=== PATIENT | female | born 1960 | race Caucasian/White ===

== ENCOUNTER 2017-01-25 09:05 | Day surgery (SDC) | payer BC ==
[~2017-01-25] VITALS: Ht 175.3 cm; Wt 74.4 kg
[2017-01-25] VITALS (10 sets, daily range): BP systolic 158–188; BP diastolic 78–95; PULSE 64–77; RESP 15–18; TEMP 97.2–98.4; O2SAT 94–98; Ht 175.3 cm; Wt 74.4 kg
[~2017-01-25 09:05] MED LIST: ACET-2321 PO; ALBU8.5H INH; ASCO-324 PO; IBUP200C62 PO; LIDOCAINE 1% (10mg/ml) 2ml SDV INJ ONE; LR 1,000 ML IV SCH; MULT-933 PO; VENL37.59 PO
--- OUTSIDE RECORDS SUMMARY | 2017-01-25 09:10 | XMS REPORT | Continuity of Care Document ---
Author Author Shweta Isidro Organization [facility] Address [address] [place] [address] Phone Care Team Providers Care Hydrodynamics Teacher Name Role Phone Jonathan, Merle COBB Unavailable Payers Payer name Insurance type Covered republican ID Authorization(s) Unknown Problems Condition Effective Dates (start - stop) Clinical Status Elevated blood pressure reading without diagnosis of hypertension - *Acute Bronchitis, Acute - *Acute Presbyopia - *Stable NEED FOR PROPHYLACTIC VACCINATION AND INOCULATION, OTHER VIRAL DISEASES - Family History Family Member Diagnosis Age At Onset Status Unknown Social History Social History Element Description Quantity Unknown Allergies, Adverse Reactions, Alerts Substance Reaction Severity Status Unknown Medications Medication Instructions Dosage Effective Dates (start - stop) Status Tylenol Extra Strength 500 mg tablet take 2 tablet (1000MG) by oral route every 6 hours as needed 1000 MG - Active amoxicillin 875 mg tablet take 1 tablet (875MG) by oral route every 12 hours 875 MG - Active codeine 10 mg-guaifenesin 100 mg/5 mL oral liquid take 5 milliliter by oral route every 6 hours as needed - Active DayTime 5 mg-10 mg-325 mg capsule USE NEEDED - Active NyQuil D 6.25 mg-30 [id number]/15mL oral liquid take by Oral route prn 0 - Active albuterol sulfate HFA 90 mcg/actuation aerosol inhaler inhale 2 puff by inhalation route every 4 - 6 hours as needed 0 - Active multivitamin tablet take 1 Tablet by Oral route every day 0 - Active ibuprofen 200 mg capsule take 1 capsule (200MG) by oral route every 6 hours as needed as needed 200 MG - Active Immunizations Vaccine Date Status Comments Zoster completed Results Test Name Date and Time Measure Units Reference Range Abnormal Flag Comments Unknown Vital Signs Date / Time: Height Weight Pulse Rate Blood Pressure Temperature /15:14:00 68.00 in 172.00 lbs 160/90 mm[Hg] 98.2 F Procedures Procedure Date Unknown Encounters Encounter Location Date Patient Visit [facility] Patient Visit [facility] Optometry Patient Visit [facility] Advance Directives Directive Effective Date Unknown
--- OUTSIDE RECORDS SUMMARY | 2017-01-25 09:10 | XMS REPORT | Continuity of Care Document ---
Author Author [facility] Organization [facility] Address Unknown Phone Unavailable Support Name Relationship Address Phone JAYLENE DHILLON MD Caregiver [address] [place] [address] [place] [address] Unavailable PATRICIA MCGRATH FACS, MD Caregiver [address] [place] [address] [place] [address] Unavailable CALIN CELAYA Next Of Kin [address] [place] [address] Insurance Providers Guarantor Taz Celaya Address [address] [address] Email DENIED PT PORTAL Payer [employer] Other Policy Number [id number] Subscriber's Name Taz Celaya Relationship 18 Self Group Number [id number] Advance Directives Directive Response Recorded Date/Time Dr Schwab Resuscitation Status Full Code 01/20/16 3:36pm Resuscitation Documents on File No 01/21/16 9:19am DPOA for Healthcare Only No 01/21/16 9:19am Problems No problem information available. Medications Current Home Medications Medication Dose Units Route Directions Days Qty Instructions Start Date Acetaminophen (Tylenol) 325 Mg Tablet 1-2 Tab Oral Four Times Daily 60 Tablet 01/06/16 Ascorbate Calcium (Vitamin C) 500 Mg Tablet 1 Tab Oral Daily 01/16 Ibuprofen 200 Mg Capsule 2 Cap Oral Every 4 Hours as needed for Pain 01/06/16 Multivitamin (Multi-Day Vitamins) 1 Each Tablet 1 Tab Oral Daily 30 Tablet 01/06/16 Venlafaxine Hcl 37.5 Mg Tablet 1 Tab Oral Twice A Day 60 01/06/16 Social History Social History Problem Response Recorded Date/Time Onset Date Status Chewing Tobacco Status No 01/21/2016 9:22am Not Applicable Not Applicable Hx Substance Use No 01/21/2016 9:22am Not Applicable Not Applicable Hx Alcohol Use Y OCCASIONAL 01/21/2016 9:22am Not Applicable Not Applicable Has the pt used tobacco in the last 12 months No 01/21/2016 9:22am Not Applicable Not Applicable Query Response Start Date Stop Date Smoking Status Former smoker Hospital Discharge Instructions No hospital discharge instructions. Plan of Care Discharge Date 01/21/16 3:32pm Prescriptions See Medication Section Functional Status Query Response Date Recorded Ability to complete ADL's impeded by No change January 21, 2016 9:19am Allergies, Adverse Reactions, Alerts No known allergies. Immunizations Query Response on File Recorded Date/Time Hx Influenza Vaccination Y JUN 2015 01/21/16 9:22am Hx Pneumococcal Vaccination No 01/21/16 9:22am Hx Influenza Vaccination Y JUN 2015 01/21/16 9:22am Vital Signs Acute Vital Signs Vital Response Date/Time Temperature (Fahrenheit) 98.1 deg F (96.8 - 99.1) 01/21/2016 2:53pm Temperature (Calculated Celsius) 36.89913 degrees C (36.0 - 37.3) 01/21/2016 2:53pm Temperature Source Temporal 01/21/2016 2:53pm Pulse Rate (adult) 76 bpm (60 - 100) 01/21/2016 3:25pm Respiratory Rate 17 breaths/min (10 - 20) 01/21/2016 3:25pm O2 Sat by Pulse Oximetry 96 % (90 - 100) 01/21/2016 3:25pm Oxygen Delivery Method Room Air 01/21/2016 3:25pm Oxygen Flow Rate 6.00 L/min 01/21/2016 2:53pm Blood Pressure 150/82 mm Hg 01/21/2016 3:25pm Blood Pressure Source Automatic Cuff 01/21/2016 3:25pm Height (Feet) 5 feet 01/21/2016 9:19am Height (Inches) 8.50 inches 01/21/2016 9:19am Weight (Kilograms) 78.000 kg 01/21/2016 9:19am Body Mass Index (BMI) 25.8 01/21/2016 9:19am Results No known relevant diagnostic tests, laboratory data and/or discharge summary. Procedures Procedure Status Date Provider(s) COLONOSCOPY AND BIOPSY Completed 01/07/16 PATRICIA MCGRATH MD, FACS, CWS PROPOFOL INJ 500 MG/50ML Completed 01/07/16"RINGERS LACTATE INFUSION, UP TO 1000 CC" Completed 01/07/16"RINGERS LACTATE INFUSION, UP TO 1000 CC" Completed 01/07/16 Colonoscopy with polypectomy and biopsy Completed 01/21/16 PATRICIA MCGRATH MD, CRISTO JOHNSON Encounters Encounter Location Arrival/Admit Date Discharge/Depart Date Attending Provider Departed [facility] 01/21/16 9:00am 01/21/16 3: 32pm PATRICIA MCGRATH FACS, MD Departed Surgical [facility] 01/07/16 7:07am 01/07/16 10 :12am PATRICIA MCGRATH FACS, MD
--- OUTSIDE RECORDS SUMMARY | 2017-01-25 09:10 | XMS REPORT | Referral Summary ---
Author Author [facility] Organization [facility] Address Unknown Phone Unavailable Care Team Providers Care Taffy Puller Name Role Phone Augustin Roque Primary Care Physician [phone] Encounter [facility] Date(s): 12/07/15 - 12/07/15 [facility] [address] [place] [address] Discharge Diagnosis: Menopausal symptoms Discharge Diagnosis: Well woman exam with routine gynecological exam Discharge Disposition: 01-Home or Self Care Attending Physician: Yissel Dias APRN Admitting Physician: Yissel Dias APRN Vital Signs Most recent to 1 oldest [Reference Range]: Temperature Tympanic 36.5 degC [36.6-38.1 degC] *LOW* (12/07/15 8:20 AM) Apical Heart Rate 94 bpm [60-100 bpm] (12/07/15 8:20 AM) Blood Pressure 112/78 mmHg [90-140/60-90 mmHg] (12/07/15 8:20 AM) SpO2 98 % (12/07/15 8:20 AM) Problem List Condition Effective Dates Status Health Status Informant Allergic Active rhinitis/hay fever(Confirmed)1 Migraine Resolved headaches(Confirmed) 2 Mitral valve Active prolapse(Confirmed) 1see conversion document. 2see conversion document. Allergies, Adverse Reactions, Alerts No Known Allergies Medications albuterol CFC free 90 mcg/inh inhalation aerosol 1 puffs, Inhalation, Once, as needed for wheezing, # 18 g, 0 Refill(s) Start Date: 02/03/14 Status: Ordered Miscellaneous DME DME Item Proclear Multifocal 8.7 -4.00/+2.50D -4.00/+2.50D order 4 bxs and mail to home., Last Exam: 08/10/2015, # 1 Each, 0 Refill(s), Supply Start Date: 08/06/14 Status: Ordered multivitamin Daily, 0 Refill(s) Start Date: 02/03/14 Status: Ordered Percocet 5/325 oral tablet 1 tabs, Oral, q6hr, as needed for pain, # 30 tabs, 0 Refill(s) Start Date: 11/08/15 Stop Date: 12/09/15 Status: Ordered venlafaxine 37.5 mg oral tablet See Instructions, TAKE ONE AND ONE-HALF TABLET BY MOUTH DAILY, # 135 tabs, 3 Refill(s), Pharmacy: [facility] #[id number], TAKE ONE AND ONE-HALF TABLET BY MOUTH DAILY Start Date: 11/16/14 Status: Ordered Results No data available for this section Immunizations Vaccine Date Refusal Reason tetanus/diphth/pertuss (Tdap) adult/adol 09/07/05 influenza virus vaccine, inactivated 06/08/15 influenza virus vaccine, inactivated 05/27/14 influenza virus vaccine, live 07/09/13 zoster vaccine live 08/05/13 Procedures Procedure Date Related Diagnosis Body Site Adenoidectomy Tonsillectomy Social History Social History Type Response Smoking Status Former smoker Assessment and Plan No data available for this section
--- OUTSIDE RECORDS SUMMARY | 2017-01-25 09:10 | XMS REPORT | Referral Summary ---
Author Author [facility] Organization [facility] Address Unknown Phone Unavailable Care Team Providers Care Isotope Technician Name Role Phone ThomaserasmoAugustin Primary Care Physician [phone] Encounter [facility] Date(s): 01/25/16 - 01/25/16 [facility] [address] [place] [address] [place] [address] [place] Discharge Diagnosis: Post-operative state Discharge Disposition: 01-Home or Self Care Attending Physician: Ezio Peña MD Admitting Physician: Ezio Peña MD Vital Signs Most recent to 1 oldest [Reference Range]: Temperature Tympanic 36.7 degC [36.6-38.1 degC] (01/25/16 4:02 PM) Problem List Condition Effective Dates Status Health [...] 0 Refill(s) Start Date: 02/03/14 Status: Ordered venlafaxine 37.5 mg oral tablet See Instructions, Take 1.5 to 2 tablets by mouth daily., # 180 tabs, 2 Refill(s) , Pharmacy: [facility] #[id number], Take 1.5 to 2 tablets by mouth daily. Start Date: 12/15/15 Status: Ordered Results No data available for this section Immunizations Vaccine Date Refusal Reason tetanus/diphth/pertuss (Tdap) adult/adol 09/07/05 influenza virus vaccine, inactivated 06/08/15 influenza virus vaccine, inactivated 05/27/14 influenza virus vaccine, live 07/09/13 zoster vaccine live 08/05/13 Procedures Procedure Date Related Diagnosis Body Site Excision of benign tumour of rectum by 01/21/16 transanal approach1 Sigmoidoscopy, flexible; with removal of 01/21/16 tumor(s), polyp(s), or other lesion(s) by hot biopsy forceps2 Colonoscopic polypectomy3 01/03/16 Adenoidectomy Tonsillectomy 1rectal carcioid 2No residual carcinoid tumor noted. Repeat colonoscopy in one year. 01/2017 3well differentiated neuroendocrine tumor (Grade I, low grade, carcinoid tumor) of rectum., extending to margin. Flex Sig with transanal resection of remainder of tumor scheduled. Social History Social History Type Response Smoking Status Former smoker Assessment and Plan No data available for this section
--- OUTSIDE RECORDS SUMMARY | 2017-01-25 09:10 | XMS REPORT | Referral Summary ---
Author Organization Unknown Address Unknown Phone Unavailable Care Team Providers Care Wet Primer Powder Blender Name Role Phone Augustin Roque Primary Care Physician [phone] Encounter [facility] JAYME [id number] Date(s): 10/20/14 - 10/20/14 [facility] [address] [place] [address]- Discharge Diagnosis: Well female exam with routine gynecological exam Discharge Diagnosis: Encounter for screening mammogram for malignant neoplasm of breast Discharge Disposition: Home or Self Care Attending Physician: Yissel Dias APRN Admitting Physician: Yissel Dias APRN Vital Signs Most recent to 1 oldest [Reference Range]: Peripheral Pulse 81 bpm Rate [60-100 bpm] (10/20/14 8:51 AM) Blood Pressure 124/82 mmHg [90-140/60-90 mmHg] (10/20/14 8:51 AM) Most recent to 1 oldest [Reference Range]: SpO2 98 % (10/20/14 8:51 AM) Problem List Condition Effective Dates Status [...] 8.7 -4.00/+2.50D -4.00/+2.50D order 4 bxs and interoffice to [place]. N/[place] this is an exchange., Last Exam: 07/21/2014, # 1 Each , 0 Refill(s), Supply Special Instructions: Proclear Multifocal 8.7 -4.00/+2.50D -4.00/+2.50D order 4 bxs and interoffice to [place]. N/[place] this is an exchange. Start Date: 08/06/14 Status: Ordered multivitamin Daily, 0 Refill(s) Start Date: 02/03/14 Status: Ordered venlafaxine 37.5 mg oral tablet See Instructions, TAKE ONE AND ONE-HALF TABLET BY MOUTH DAILY, # 45 tabs, 1 Refill(s), eRx: [facility] #[id number], TAKE ONE AND ONE-HALF TABLET BY MOUTH DAILY Special Instructions: TAKE ONE AND ONE-HALF TABLET BY MOUTH DAILY Start Date: 09/08/14 Status: Ordered Results No data available for this section Immunizations Vaccine Date Refusal Reason tetanus/diphth/pertuss (Tdap) adult/adol 09/07/05 influenza virus vaccine, inactivated 05/27/14 influenza virus vaccine, live 07/09/13 zoster vaccine live 08/05/13 Procedures Procedure Date Related Diagnosis Body Site Adenoidectomy Tonsillectomy Social History Social History Type Response Smoking Status Former smoker Assessment and Plan No data available for this section
--- OUTSIDE RECORDS SUMMARY | 2017-01-25 09:10 | XMS REPORT | Referral Summary ---
Author Author [facility] Organization [facility] Address Unknown Phone Unavailable Care Team Providers Care Ice Cream Vendor Name Role Phone Augustin Roque Primary Care Physician [phone] Encounter [facility] Date(s): 01/18/16 - 01/18/16 [facility] [address] [place] [address] Dr [place] [address] [place] Discharge Diagnosis: Carcinoid tumor of colon Discharge Disposition: 01-Home or Self Care Attending Physician: Ezio Peña MD Admitting Physician: Ezio Peña MD Referring Physician: Roberto Roque MD Vital Signs Most recent to 1 oldest [Reference Range]: Temperature Tympanic 36.9 degC [36.6-38.1 degC] (01/18/16 5:44 PM) Problem List Condition Effective Dates Status [...] # 180 tabs, 2 Refill(s) , Pharmacy: [facility] #[id number], Take 1.5 to 2 tablets by mouth daily. Start Date: 12/15/15 Status: Ordered Results No data available for this section Immunizations Vaccine Date Refusal Reason tetanus/diphth/pertuss (Tdap) adult/adol 09/07/05 influenza virus vaccine, inactivated 06/08/15 influenza virus vaccine, inactivated 05/27/14 influenza virus vaccine, live 07/09/13 zoster vaccine live 08/05/13 Procedures Procedure Date Related Diagnosis Body Site Colonoscopic polypectomy1 01/03/16 Adenoidectomy Tonsillectomy 1well differentiated neuroendocrine tumor (Grade I, low grade, carcinoid tumor) of rectum., extending to margin. Flex Sig with transanal resection of remainder of tumor scheduled. Social History Social History Type Response Smoking Status Former smoker Assessment and Plan Extracted from: Title: Office Visit Note Author: Ezio Peña MD Date: 01/18/16 Assessment/Plan Carcinoid tumor of colon Ordered: Office Visit Level 3 Est 40553 Orders: CT Abdomen w/ + w/o Pelvis w/ + w/o Cont Plan: Flexible Sigmoidoscopy with Possible Transanal Resection Prior Polypectomy Site, Possible Endoscopic Resection of Prior Polypectomy Site. I did go over with the patienther pathology result was surprisingly did return revealing that of a low-grade carcinoid tumor. Margins were involved. I did discuss carcinoid tumors as an entity with the patient. I informed the patientthat in her situation since her carcinoid tumor was less than acentimeter, was well-differentiated,and hada low mitotic ratethat it would beconsidered to bebenignin nature. I would however recommend that this newly discovered carcinoid tumorwould be resected in its entirety with"clear margins". It wastherefore my recommendation that in a timely fashion we should return her to the operative suite and perform a flexible sigmoidoscopy. Hopefullywe would be able to see her prior polypectomy site. If herprior polypectomy site is able to be identifiedand is amenable to a transanal excisionI would then recommendwe wouldexciseher prior polypectomy sitein a full-thickness fashion transanally. If on the other handher prior polypectomy site is not amenable to a transanal excisionwe will try tocompletely resect herprior polypectomysite endoscopically. I did describeto the patient how we could inject beneath the priorpolypectomy siteandendoscopicallypotentially resecttheprior polypectomy site in its entiretyand obtain clear margins. I did discuss in detail with the patient what this procedure would entail and its associated risk which included but was not inclusive ofbleeding and/or infection. I also informed the patient thatstatistically there is a slightly higher incidence of having synchronousmalignancies associated with a carcinoid tumor Denny would therefore recommend that we obtain a CT scan of her chest abdomen and pelvisfor further evaluation as well as to rule out metastaticdisease which I feel is highly unlikely..
--- OUTSIDE RECORDS SUMMARY | 2017-01-25 09:10 | XMS REPORT | Continuity of Care Document ---
Author Author [facility] Organization [facility] Address Unknown Phone Unavailable Allergies Medications Problems Procedures Results Encounters ACCT No. Visit Date/Time Discharge Status Pt. Type Provider Facility Loc./Unit Complaint [id number] 09/25/2013 15:13:00 09/25/2013 23 :59:59 CLS Outpatient
--- OUTSIDE RECORDS SUMMARY | 2017-01-25 09:10 | XMS REPORT | Referral Summary ---
Author Author [facility], Optometry Organization [facility] Address Unknown Phone Unavailable Care Team Providers Care Sand Control Worker Name Role Phone Augustin Roque Primary Care Physician [phone] Encounter [facility] Date(s): 08/10/15 - 08/10/15 [facility] [email or web address] [place], [place] [address] Discharge Diagnosis: Presbyopia Discharge Disposition: 01-Home or Self Care Attending Physician: Jaspreet Vuong OD Admitting Physician: Jaspreet Vuong OD Vital Signs No data available for this section Problem List Condition Effective Dates Status Health [...] -4.00/+2.50D order 4 bxs and interoffice to [place]. N/C this is an exchange., Last Exam: 07/21/2014, # 1 Each , 0 Refill(s), Supply Start Date: 08/06/14 Status: Ordered multivitamin Daily, 0 Refill(s) Start Date: 02/03/14 Status: Ordered venlafaxine 37.5 mg oral tablet See Instructions, TAKE ONE AND ONE-HALF TABLET BY MOUTH DAILY, # 135 tabs, 3 Refill(s), Pharmacy: [facility] #[id number], TAKE ONE AND ONE-HALF TABLET BY MOUTH [...] smoker Assessment and Plan Extracted from: Title: Ambulatory Patient Education Author: Jaspreet Vuong OD Date: 08/10/15 Ophthalmology Presbyopia Presbyopia is when the ability to focus on close objects gets harder or is lost due to age. The ability to focus from near to far is called accommodation. Loss of accommodation is a normal aging process and not a disease. It usually begins when people approach their 40s. It continues for several decades until the eye can not focus anymore. Presbyopia is one of the reasons why people need bifocals and reading glasses when they get older. CAUSES Aging. Some medical conditions which cause problems seeing up close. These include : High or low blood sugar. . Weakness of the eye muscles required to bring the eyes in while looking nearby (convergence). Certain drugs and medicines (muscle relaxants, anti-depressants, ant- anxiety agents etc.) SYMPTOMS A hard time reading or seeing objects up close. Achy feeling in the eyes while reading. Headaches when reading or focusing up close. Eye strain for activities that need focusing up close. DIAGNOSIS The diagnosis of this problem is easily made on exam by your six horse hitch driver or clinical nursing professor. You should have your eyes checked regularly throughout your life at yearly intervals. TREATMENT Presbyopia is treated with glasses or contact lenses. Ophthalmologists can use painless laser treatments to change the shape of the cornea (the clear covering at the front of the eye). This will not help with close-up vision after a certain age unless the procedure is planned to give only one eye close vision. This should be discussed with the clinical nursing professor before having surgery or a laser treatment. These types of approaches may affect the way the eyes work together. Document Released: 07/13/2005 Document Revised: 01/04/2015 Document Reviewed: [facility] Patient Information 2015 [employer]. This information is not intended to replace advice given to you by your health care provider. Make sure you discuss any questions you have with your health care provider. No follow up information was provided. Extracted from: Title: Contact Lens Eye Exam am Author: Jaspreet Vuong OD Date: 08/10/15 Impression and Plan Diagnosis Presbyopia ([id number] H52.4, Discharge, Medical). Plan: Procedure, Spectacle prescription and contact lens information. . Patient Instructions: Presbyopia, 1 year. Prescription: Ophthalmology Rx ([facility]) Order 4 boxes Proclear Multifocal8.6/-4.00/+2.50D Proclear Multifocal8.6/-4.00/+2.50D Mail.
--- OUTSIDE RECORDS SUMMARY | 2017-01-25 09:10 | XMS REPORT | Referral Summary ---
Author Author [facility] Organization [facility] Address Unknown Phone Unavailable Care Team Providers Care Lending Consultant Name Role Phone ThomaserasmoAugustin Primary Care Physician [phone] Encounter VC Date(s): 11/08/15 - 11/08/15 [facility] [address] [place] [id number] Discharge Diagnosis: Calcific tendinitis of left shoulder Discharge Diagnosis: Left shoulder pain Discharge Disposition: 01-Home or Self Care Attending Physician: Maxime Turner DO Admitting Physician: Maxime Turner DO Vital Signs Most recent to 1 oldest [Reference Range]: Temperature Tympanic 35.7 degC [36.6-38.1 degC] *LOW* (11/08/15 8:24 AM) Peripheral Pulse 72 bpm Rate [60-100 bpm] (11/08/15 8:24 AM) Blood Pressure 146/101 mmHg [90-140/60-90 mmHg] *HI* (11/08/15 8:24 AM) Problem List Condition Effective Dates Status Health Status Informant Allergic Active rhinitis/hay fever(Confirmed)1 Migraine Resolved headaches(Confirmed) 2 Mitral valve Active prolapse(Confirmed) 1see conversion document. 2see conversion document. Allergies, Adverse Reactions, Alerts No Known Allergies Medications albuterol CFC free 90 mcg/inh inhalation aerosol 1 puffs, Inhalation, Once, as needed for wheezing, # 18 g, 0 Refill(s) Start Date: 02/03/14 Status: Ordered cyclobenzaprine 10 mg oral tablet 10 mg 1 tabs, Oral, BID, as needed for spasm, X 14 days, # 28 tabs, 0 Refill(s) , Pharmacy: [facility] #[id number], 1 tabs Oral BID,x14 days,PRN:as needed for spasm Start Date: 11/08/15 Stop Date: 11/22/15 Status: Ordered Miscellaneous DME DME Item Proclear [...] Date: 11/08/15 Stop Date: 12/09/15 Status: Ordered predniSONE 20 mg oral tablet 40 mg 2 tabs, Oral, Daily, X 5 days, # 10 tabs, 0 Refill(s), Pharmacy: [facility] #[id number], 2 tabs Oral Daily,x5 days Start Date: 11/08/15 Stop Date: 11/13/15 Status: Ordered venlafaxine 37.5 mg oral tablet See Instructions, TAKE ONE AND ONE-HALF TABLET BY MOUTH DAILY, # 135 tabs, 3 Refill(s), Pharmacy: [facility] #[id number], TAKE ONE AND ONE-HALF TABLET BY MOUTH [...] smoker Assessment and Plan Extracted from: Title: Left shoulder tendinitis Author: Maxime Turner DO Date: 11/08/15 Assessment/Plan Calcific tendinitis of left shoulder, Calcific tendinitis of left shoulder 1. Imaging of the shoulder demonstrates calcific tendinitis at the insertion of the supraspinatus muscle. 2. Finding was discussed in detail with the patient, she voiced understanding. Ordered: Office Visit Level 4 Est 40270 Left shoulder pain, Pain in left shoulder 1. Clinical finding is significant for severe discomfort with attempt to range the shoulder. 2. At this time I think most of her symptoms are secondary to tendinitis. Will try to get the inflammation and pain under control and have her increase her range of motion as tolerated. If no improvement in the next week or 2 and then we may consider physical therapy and MRI of the shoulder to rule out rotator cuff injury. Patient was agreeable. 3. Continue ibuprofen. 4. Prednisone 40 mg daily for 5 days. 5. Percocet as needed for pain. Ordered: Office Visit Level 4 Est 60272 Muscle spasm of left shoulder 1. Cyclobenzaprine 10 mg twice a day for muscle relaxer. 2. Warm compression to the involved area. 3. Stretching exercises recommended and demonstrated for the patient, she voiced understanding. 4. Additional recommendations as above. Ordered: oxyCODONE-acetaminophen, 1 tabs, Oral, q6hr, as needed for pain, # 30 tabs, 0 Refill(s) oxyCODONE-acetaminophen, 2 tabs, Oral, q6hr, as needed for pain, # 30 tabs, 0 Refill(s) MRI UE Joint w/o Contrast Left Office Visit Level 4 Est 91904 Orders: cyclobenzaprine, 10 mg 1 tabs, Oral, BID, as needed for spasm, X 14 days, # 28 tabs, 0 Refill(s), Pharmacy: [facility] #[id number], 1 tabs Oral BID,x14 days,PRN:as needed for spasm predniSONE, 40 mg 2 tabs, Oral, Daily, X 5 days, # 10 tabs, 0 Refill(s), Pharmacy: [facility] #[id number], 2 tabs Oral Daily,x5 days
--- NOTE | 2017-01-25 10:49 | ANESPREOP ---
Anesthesia Record Date and Time DATE: 01/25/17 TIME: 10:47 Pre-Op Diagnosis Sigmoid Cancer history Proposed Surgical Procedure FLEX. SIGMOID NPO since: Midnight Allergies: Coded Allergies: No Known Allergies (Unverified , 01/25/17) Ht/Wt/BMI Height: 5 ' 9.00 " Weight: 74.400 kg BMI: 24.2 kg/m2 Vital Signs Date Time Temp Pulse Resp B/P Pulse Ox O2 Delivery O2 Flow Rate FiO2 01/25/17 09:17 98.4 76 15 167/82 94 Room Air Medications Inpatient Medications Current Medications Medications (Trade) Dose Ordered Sig/Rohit Start Time Stop Time Status Last Admin Dose Admin Lactated Ringer's (Lactated Ringers) 1,000 ml @ 30 mls/hr Q24H 01/25/17 07:00 01/25/17 09:31 30 MLS/HR Acetaminophen (Tylenol) 325 Mg Tablet, 1-2 TAB PO QID, (Reported) Last Taken: on Unknown Date & Time Albuterol Sulfate (Proair HFA 90 mcg/ actuation) 8.5 Gm Hfa.aer.ad, 1 PUFF INH Q6H PRN for ASTHMA, (Reported) Last Taken: on Unknown Date & Time Ascorbate Calcium (Vitamin C) 500 Mg Tablet, 1 TAB PO DAILY, (Reported) Last Taken: on 01/24/17 0700 Ibuprofen (Ibuprofen) 200 Mg Capsule, 2 CAP PO Q4H PRN for PAIN, (Reported) Last Taken: on 01/24/17 0700 Multivitamin (Multi-Day Vitamins) 1 Each Tablet , 1 TAB PO DAILY, (Reported) Last Taken: on 01/24/17 07 Venlafaxine HCl (Venlafaxine HCl) 37.5 Mg Tablet, 1 TAB PO BID, (Reported) Last Taken: on 01/24/17 0700 Currently on Beta Keith: No Medical/Surgical History Anesthesia PMH: Reports: Depression, Denies: *Angina, *Hypertension, *CO, Anesthesia Reactions (NO AIRWAY ISSUES), CHF, CVA/Stroke/TIA, Cancer, Clotting Problems, Deep Vein Thrombosis, Glaucoma, Malignant Hyperthermia, Seizures Smoking Status: Former smoker Has pt. smoked today?: No Use Chewing Tobacco?: No Second Hand Exposure: No Substance Use Type: does not use Alcohol Intake: a few times a week HX of Last Menstrual Period: 2014 Past Surgical History Orthopedic Surgeries: Abdominal Surgeries: Genitourinary Surgeries: Cardiac Surgeries: Endocrine Surgeries: Reproductive Surgeries: Neurological Surgeries: Ear Surgeries: Nose Surgeries: Throat Surgeries: Yes - T&A Other Surgeries: Yes - WISDOM TEETH REMOVAL, COLONOSCOPY,RECTAL TUMOR REMOVED Anesthesia Adverse Reactions: FOUND none Family Hx of Anesthesia Advers: none Hx of Motion Sickness: No Pertinent Findings EKG Rhythm: Sinus Rhythm Physical Exam Respiratory: Lungs clear Cardiovascular: FOUND Regular rate, rhythm Airway Assessment Mallampati Score: II TMD: 3 Fingerbreadths Neck Extension: Good Overall Assessment: No Airway Concerns ASA: 2 Plan Anesthesia Plan: TIVA Discussion Discussed risks/options/alternatives of anesthesia and questions answered. Patient consents. Nursing pain assessment noted. Attestation Statement Prior to the delivery of any anesthetic medication, I examined the patient, developed the plan, obtained the patient's consent and discussed the risk and benefits of the procedure with the patient/guardian. JESS MENDOZA IT AUDITOR January 25, 2017 10:49
[2017-01-25] MEDS ORDERED: PROPOFOL 500mg 0 ML IV ONE (11:00)
[2017-01-25] MEDS ORDERED: LIDOCAINE 2% (20mg/ml) 5ml PF SDV ONE (11:56)
[2017-01-25] MEDS ORDERED: MIDAZOLAM 5mg/5ml INJECTION ONE (12:06)
--- NOTE | 2017-01-26 20:04 | OPNOTEF ---
DATE OF SERVICE 01/25/2017 SURGEON Ezio Mcclure MD PREOPERATIVE DIAGNOSIS Personal history of rectal carcinoid. POSTOPERATIVE DIAGNOSES Personal history of rectal carcinoid. Diminutive rectal polyp x 1. PROCEDURE Flexible sigmoidoscopy with polypectomy via cold biopsy technique. ANESTHESIA TIVA BRIEF HISTORY/INDICATIONS Mrs. Lovelace is a 56-year-old female who has a personal history for rectal carcinoid. She has undergone prior colonoscopy with what was believed to be that of a polypectomy at the time of her colonoscopy. Upon pathology this did return as that of a carcinoid tumor. She subsequently underwent transanal excision of the prior polypectomy site. No residual carcinoid tumor was identified. Patient presents today to undergo flexible sigmoidoscopy in followup to rule out local recurrence of her prior carcinoid tumor. For completeness please refer to notes included in the patient's chart. FINDINGS Upon flexible sigmoidoscopy I did not appreciate evidence for angiodysplastic lesions, diverticula or smiley malignancies. The rectum was carefully inspected and she was found to have a very diminutive-appearing rectal polyp that was on the order of 4-5 mm in diameter which was removed in its entirety via cold biopsy technique. There was no evidence for recurrence of her carcinoid tumor. NARRATIVE OF PROCEDURE After informed consent was obtained the patient was brought to the endoscopy suite and placed on table in left lateral decubitus position. Formal time-out was then completed. Next, digital rectal exam was performed. Normal sphincter tone. No rectal masses were appreciated. An Olympus colonoscope was inserted into the anus and advanced up to about 30-40 cm from the anal verge and the patient began to experience a slight component of discomfort. Scope was therefore begun to be withdrawn. The sigmoid colon was without evidence for angiodysplastic lesions, polyps, diverticula or smiley malignancies. The colonoscope was then withdrawn until it was brought forth back to the rectal vault. The rectal vault was carefully inspected endoscopically. One could see the prior site of her transanal excision. One could see an old "scar-like area" present within the rectal vault. There was no evidence for mucosal abnormalities adjacent to this area. With careful inspection one could see a small 4-5 mm polyp outside of her prior polypectomy and transanal excision site. This polyp was grasped and removed in its entirety via cold biopsy technique. J-maneuver was then performed. No worrisome perianal pathology was noted. Scope was allowed to straighten and the rectal vault was again carefully inspected and found to be without noted abnormalities. Scope was removed from the patient's anal verge. The patient tolerated the procedure without difficulty and was sent back to the preop area in stable condition. STEPH
== END 2017-01-25 12:35 | disposition home or self-care (01) ==
LOC: SCU 09:05
PROVIDERS: ATTEND Surgery
DX: K62.1 Rectal polyp (principal); Z85.040 Personal history of malignant carcinoid tumor of rectum; J30.1 Allergic rhinitis due to pollen; I34.1 Nonrheumatic mitral (valve) prolapse; Z79.899 Other long term (current) drug therapy; Z87.891 Personal history of nicotine dependence
CPT/HCPCS: 45331; J7120